=== PATIENT | male | born 1995 | race Caucasian/White ===

== ENCOUNTER 2017-01-20 08:04 | Emergency (ER) | payer BC, OTHER ==
[2017-01-20 08:13] VITALS: BP 126/76
--- NOTE | 2017-01-20 08:31 | UC ---
Laceration HPI - HPI Summary HPI Summary: patient hit the right side of his head on the ground about 10 hours ago, 2.5 cm laceration to the right eyebrow. - History Of Current Complaint Chief Complaint: UCLaceration Stated Complaint: RIGHT EYEBROW LACERATION Time Seen by Provider: 01/20/17 08:14 Hx Obtained From: Patient Laceration Location: Face Mechanism Of Injury: Blunt Trauma Onset/Duration: Sudden Onset, Lasting Hours - Allergies/Home Medications Allergies/Adverse Reactions: Allergies Allergy/AdvReac Type Severity Reaction Status Date / Time No Known Allergies Allergy Verified 01/20/17 08:13 PMH/Surg Hx/FS Hx/Imm Hx Previously Healthy: Yes - Surgical History Surgical History: None - Family History Known Family History: Negative: Cardiac Disease, Hypertension - Social History Alcohol Use: Occasionally Substance Use Type: None Smoking Status (MU): Never Smoked Tobacco - Immunization History Most Recent Tetanus Shot: 07/2016 Review of Systems Constitutional: Negative Skin: Other - laceration Eyes: Negative ENT: Negative Respiratory: Negative Cardiovascular: Negative Gastrointestinal: Negative Genitourinary: Negative Motor: Negative Neurovascular: Negative Musculoskeletal: Negative Neurological: Negative Psychological: Negative All Other Systems Reviewed And Are Negative: Yes Physical Exam Triage Information Reviewed: Yes Appearance: Well-Appearing, Well-Nourished, Pain Distress Vital Signs: Initial Vital Signs Temp 97.9 F 01/20/17 08:08 Pulse 98 01/20/17 08:08 Resp 16 01/20/17 08:08 BP 126/76 01/20/17 08:08 Pulse Ox 99 01/20/17 08:08 Vital Signs Reviewed: Yes Eye Exam: Normal Eyes: Positive: Conjunctiva Clear ENT Exam: Normal ENT: Positive: Hearing grossly normal, Pharynx normal, TMs normal Dental Exam: Normal Neck exam: Normal Neck: Positive: Supple, Nontender, No Lymphadenopathy Respiratory Exam: Normal Respiratory: Positive: Chest non-tender, Lungs clear, Normal breath sounds Cardiovascular Exam: Normal Cardiovascular: Positive: RRR, No Murmur, Pulses Normal Abdominal Exam: Normal Abdomen Description: Positive: Nontender, No Organomegaly, Soft Bowel Sounds: Positive: Present Musculoskeletal Exam: Normal Musculoskeletal: Positive: Strength Intact, ROM Intact, No Edema Neurological Exam: Normal Neurological: Positive: Alert, Muscle Tone Normal Psychological Exam: Normal Skin: Positive: Other - laceration to the upper right eybrow. 2.5 cm simple Laceration Repair - Laceration Repair 1 Description: Linear Laceration Size After Repair: Length (cm) - 2.5 Modified For Repair: No Cleansing Completed Via Routine Prep: Yes Irrigation With Pressure Irrigation Device: No Closure Material: Skin Adhesive, SteriStrips Closure Method: Single Layer Suture Of: Skin Laceration Course/Dx - Course/Dx Course Of Treatment: hx obtained, exam performed ,meds reviewed, wound irrigated and glued, 3 steri strips applied. placed on ABx. - Differential Dx - Laceration/Wound Differental Diagnoses: Laceration Provider Diagnoses: 2.5 cm simple laceration to right eyebrow Discharge - Discharge Plan Condition: Stable Disposition: HOME Patient Education Materials: Skin Adhesive Care (ED) Additional Instructions: 1.Keep the area clean and dry. 2.Allow the glue to fall off on its own. 3. Take the antibiotic to prevent infection 4. FOllow up with any sign of infection.
== END 2017-01-20 08:38 | disposition home or self-care (01) ==
LOC: UCCORT 08:04
DX: S01.111A Laceration without foreign body of right eyelid and periocular area, initial encounter (principal); W19.XXXA Unspecified fall, initial encounter; Y92.9 Unspecified place or not applicable
CPT/HCPCS: 12011; 99202; G0463